=== PATIENT | female | born 1970 | race Caucasian/White ===

== ENCOUNTER 2021-12-17 20:40 | Emergency (ER) | payer OTHER, MEDICAID ==
[~2021-12-17] VITALS: Ht 160 cm; Wt 74.4 kg
[2021-12-17 20:40] VITALS: BP 131/92
[2021-12-17 22:22] LABS: Urine Bacteria FEW /hpf (None Seen); Urine Blood Negative /uL (Negative); Urine Hyaline Cast FEW /lpf (0 - 2); Urine Mucus FEW (None Seen); Urine WBC 3 /hpf (0 - 5)
[2021-12-17 22:35] LABS: Amphetamine Screen, Urine NEGATIVE (NEGATIVE); Barbiturate Scree,Urine NEGATIVE (NEGATIVE); Benzodiazephine Screen, Urine NEGATIVE (NEGATIVE); Cannabinoid Screen, Urine NEGATIVE (NEGATIVE); Cocaine Screen, Urine NEGATIVE (NEGATIVE); Opiate Scree,Urine NEGATIVE (NEGATIVE); Phencyclidine Screen, Urine NEGATIVE (NEGATIVE)
[2021-12-18] MEDS ORDERED: INSLANTI SC (19:51)
[2021-12-18] MEDS ORDERED: LISI2.5T47 PO (19:51)
== END 2021-12-17 22:02 | disposition left against medical advice (07) ==
LOC: ER 20:40
DX: R47.1 Dysarthria and anarthria (principal); M62.552 Muscle wasting and atrophy, not elsewhere classified, left thigh; E11.9 Type 2 diabetes mellitus without complications; E78.5 Hyperlipidemia, unspecified; R42 Dizziness and giddiness; Z53.29 Procedure and treatment not carried out because of patient's decision for other reasons
CPT/HCPCS: 80307; 81001

== ENCOUNTER 2021-12-18 04:36 | Inpatient (IN) | payer OTHER, MEDICAID ==
[~2021-12-18] VITALS: Ht 160 cm; Wt 73.7 kg
[2021-12-18 08:12] LABS: Basophils # (auto) 0.1 10 ^3/uL (0-0.2); Basophils % (auto) 0.6 % (0.0-2.0); Eosinophils # (auto) 0.2 10 ^3/uL (0-0.8); Eosinophils % (auto) 2.6 % (0.0-7.0); Hematocrit 42.9 % (36.0-46.0); Hemoglobin 14.6 g/dL (12.2-16.2); Lymphocytes # (auto) 2.9 10 ^3/uL (0.4-5.4); Lymphocytes % (auto) 31.1 % (10.0-50.0); Mean Corpuscular Hemoglobin 31.6 pg (28.0-32.0); Mean Corpuscular Volume 93.1 fL (80.0-100.0); Monocytes # (auto) 1.1 10 ^3/uL (0-1.3); Monocytes % (auto) 11.2 % (0.0-12.0); Neutrophils # (auto) 5.2 10 ^3/uL (1.6-8.6); Neutrophils % (auto) 54.5 % (37.0-80.0); White Blood Cell 9.5 10^3/uL (4.4-10.8)
[2021-12-18 08:28] LABS: Albumin 4.1 g/dL (3.4-5.0); BUN/Creatinine Ratio 23.2; Calcium 9.8 mg/dL (8.5-10.1); Potassium 3.6 mmol/L (3.5-5.1)
[2021-12-18 08:30] LABS: Bilirubin, Total 0.4 mg/dL (0.2-1.0); Total Protein 7.2 g/dL (6.4-8.2)
[2021-12-18] MEDS ORDERED: ASPirin-EC 81 mg tab PO ONE (12:15)
[2021-12-18] MEDS ORDERED: HYDROmorphone HCL 2 MG/ML VL/or syr IV PRN (12:15)
[2021-12-18] MEDS ORDERED: DEXTROSE (50%) 50ML SYRG IV PRN (12:15)
[2021-12-18] MEDS ORDERED: LABETALOL HCL 5 MG/ML 4ML SYRINGE IV PRN (12:15)
[2021-12-18] MEDS ORDERED: LORazepam 2MG/ML-1ML VIAL IV PRN (12:15)
[2021-12-18] MEDS ORDERED: DOCUSATE SOD 100 MG CAP PO PRN (12:15)
[2021-12-18] MEDS ORDERED: ACETAMINOPHEN 325 MG TAB PO PRN (12:15)
[2021-12-18 12:52] LABS: Cholesterol 177 mg/dL (< 200)
[2021-12-18 12:54] LABS: HDL Cholesterol 52 mg/dL (40-59); LDL Cholesterol 105 mg/dL (< 100); Triglycerides 274 mg/dL (< 150)
[2021-12-18] MEDS: SODIUM CHLOR 0.9% PF (SALINE LOCK) 10ML VIAL/SYR IV SCH ×2 (14:27→23:34)
[2021-12-18] MEDS: diazePAM 5 MG TAB PO PRN (14:27)
[2021-12-18 15:47] LABS: INR 0.99 (0.9-1.15)
[2021-12-18] MEDS: InsuLIN REG 1unit/0.01ml Soln (100units/ml) SC SCH ×2 (18:43→23:35)
[2021-12-18] MEDS: ACCU-CHEK COMFORT CURVE STRIP VI SCH ×2 (18:43→23:36)
[2021-12-18] MEDS ORDERED: IOHEXOL 350 MG/ML 100ML IJ ONE (19:02)
[2021-12-18] MEDS ORDERED: INSLANTI SC (19:51)
[2021-12-18] MEDS ORDERED: LISI2.5T47 PO (19:51)
[2021-12-18] MEDS: SODIUM CHLORIDE 0.9% 1,000 ML IV SCH ×2 (20:12→22:32)
[2021-12-18] MEDS: ATORVASTATIN 20 MG TAB PO SCH ×2 (22:00→23:34)
[2021-12-18 23:34] VITALS: BP 115/95
[2021-12-18 23:39] VITALS: BP 124/70
[2021-12-19 04:31] VITALS: BP 124/70
[2021-12-19 05:00] VITALS: BP 116/73
[2021-12-19] MEDS: SODIUM CHLOR 0.9% PF (SALINE LOCK) 10ML VIAL/SYR IV SCH ×3 (05:24→22:11)
[2021-12-19] MEDS: InsuLIN REG 1unit/0.01ml Soln (100units/ml) SC SCH ×4 (05:25→23:55)
[2021-12-19] MEDS: ACCU-CHEK COMFORT CURVE STRIP VI SCH ×4 (05:25→23:54)
[2021-12-19] MEDS: CLOPIDOGREL BISULFATE 75 MG TAB PO SCH (08:31)
[2021-12-19] MEDS: HYDROcodone-ACET 5/325MG TAB PO PRN ×2 (08:33→20:30)
[2021-12-19 09:40] VITALS: BP 114/75
[2021-12-19] MEDS: diazePAM 5 MG TAB PO PRN ×2 (11:44→22:10)
[2021-12-19 13:28] VITALS: BP 114/60
[2021-12-19 17:00] VITALS: BP 112/69
[2021-12-19] MEDS ORDERED: OMEP-260 PO (21:03)
[2021-12-19] MEDS ORDERED: NAP500T PO (21:03)
[2021-12-19] MEDS ORDERED: DIVA250T12 PO (21:03)
[2021-12-19] MEDS ORDERED: CLON0.5T10 PO (21:05)
[2021-12-19] MEDS ORDERED: DULA1INJ SC (21:07)
[2021-12-19 22:00] VITALS: BP 124/48
[2021-12-19] MEDS: ATORVASTATIN 20 MG TAB PO SCH (22:09)
[2021-12-20] MEDS ORDERED: ONDANSETRON HCL 4 MG/2 ML VIAL IV PRN (01:00)
[2021-12-20] MEDS ORDERED: EZET1TAB90 PO (03:29)
[2021-12-20] MEDS ORDERED: CLON0.5T3 PO (03:29)
[2021-12-20] MEDS ORDERED: ALBU108A5 IN (03:29)
[2021-12-20] MEDS ORDERED: CETITAB PO (03:29)
[2021-12-20] MEDS ORDERED: BECL80AE11 IN (03:29)
[2021-12-20 05:00] VITALS: BP 123/64
[2021-12-20 05:23] LABS: Urine Bacteria NONE SEEN /hpf (None Seen); Urine Blood 3+ /uL (Negative); Urine Mucus FEW (None Seen); Urine Specific Gravity 1.028 (1.001-1.035); Urine WBC 20 /hpf (0 - 5); Urine WBC Clumps PRESENT /hpf (None Seen)
[2021-12-20] MEDS: SODIUM CHLOR 0.9% PF (SALINE LOCK) 10ML VIAL/SYR IV SCH ×3 (05:36→22:08)
[2021-12-20] MEDS: ACCU-CHEK COMFORT CURVE STRIP VI SCH ×3 (05:36→18:00)
[2021-12-20] MEDS: InsuLIN REG 1unit/0.01ml Soln (100units/ml) SC SCH ×3 (05:37→18:45)
[2021-12-20 05:39] LABS: Alcohol, Urine < 3.0 mg/dL (0-10); Amphetamine Screen, Urine NEGATIVE (NEGATIVE); Barbiturate Scree,Urine NEGATIVE (NEGATIVE); Benzodiazephine Screen, Urine POSITIVE (NEGATIVE); Cannabinoid Screen, Urine NEGATIVE (NEGATIVE); Cocaine Screen, Urine NEGATIVE (NEGATIVE); Opiate Scree,Urine POSITIVE (NEGATIVE); Phencyclidine Screen, Urine NEGATIVE (NEGATIVE)
[2021-12-20] MEDS ORDERED: METOCLOPRAMIDE HCL 5MG/ml INJ 2ml VIAL IV ONE (06:00)
[2021-12-20 09:10] VITALS: BP 137/84
[2021-12-20] MEDS: CLOPIDOGREL BISULFATE 75 MG TAB PO SCH (10:12)
[2021-12-20] MEDS: diazePAM 5 MG TAB PO PRN (10:13)
[2021-12-20] MEDS: HYDROcodone-ACET 5/325MG TAB PO PRN ×2 (13:37→22:09)
[2021-12-20 13:50] VITALS: BP 118/67
[2021-12-20 17:10] VITALS: BP 112/71
[2021-12-20] MEDS: ATORVASTATIN 20 MG TAB PO SCH (22:08)
[2021-12-21] VITALS (7 sets, daily range): BP systolic 90–136; BP diastolic 35–78
[2021-12-21] MEDS: ACCU-CHEK COMFORT CURVE STRIP VI SCH ×4 (00:23→18:00)
[2021-12-21] MEDS: LORazepam 0.5 MG TAB PO PRN ×3 (00:23→22:37)
[2021-12-21] MEDS: InsuLIN REG 1unit/0.01ml Soln (100units/ml) SC SCH ×4 (00:32→18:37)
[2021-12-21 05:25] LABS: Basophils # (auto) 0.1 10 ^3/uL (0-0.2); Basophils % (auto) 0.7 % (0.0-2.0); Eosinophils # (auto) 0.2 10 ^3/uL (0-0.8); Eosinophils % (auto) 2.5 % (0.0-7.0); Hematocrit 38.2 % (36.0-46.0); Hemoglobin 13.1 g/dL (12.2-16.2); Lymphocytes % (auto) 32.4 % (10.0-50.0); Mean Corpuscular Hemoglobin 31.9 pg (28.0-32.0); Mean Corpuscular Hgb Conc. 34.4 g/dL (32.0-36.0); Mean Corpuscular Volume 92.5 fL (80.0-100.0); Monocytes # (auto) 1.1 10 ^3/uL (0-1.3); Monocytes % (auto) 11.6 % (0.0-12.0); Neutrophils # (auto) 4.8 10 ^3/uL (1.6-8.6); Neutrophils % (auto) 52.8 % (37.0-80.0); Red Blood Cells 4.13 10^6/uL (4.0-5.20); Red Cell Distribution Width 12.8 % (11.8-14.3); White Blood Cell 9.1 10^3/uL (4.4-10.8)
[2021-12-21 05:41] LABS: BUN/Creatinine Ratio 24.5; Calcium 8.5 mg/dL (8.5-10.1); Magnesium 1.8 mg/dL (1.6-2.6); Potassium 3.6 mmol/L (3.5-5.1)
[2021-12-21] MEDS: SODIUM CHLOR 0.9% PF (SALINE LOCK) 10ML VIAL/SYR IV SCH ×3 (05:47→22:32)
[2021-12-21] MEDS: HYDROcodone-ACET 5/325MG TAB PO PRN ×2 (10:42→22:37)
[2021-12-21] MEDS: CLOPIDOGREL BISULFATE 75 MG TAB PO SCH (10:43)
[2021-12-21] MEDS ORDERED: DULoxetine HCL 30 MG CAP PO ONE (18:00)
[2021-12-21] MEDS: INSULIN LANTUS (GLARGINE) 1 /0.01ml (100units/ml) SC SCH (22:36)
[2021-12-21] MEDS: ATORVASTATIN 20 MG TAB PO SCH (22:37)
[2021-12-22] MEDS: ACCU-CHEK COMFORT CURVE STRIP VI SCH ×4 (00:31→18:06)
[2021-12-22] MEDS: InsuLIN REG 1unit/0.01ml Soln (100units/ml) SC SCH ×4 (00:35→18:35)
[2021-12-22 05:00] VITALS: BP 131/67
[2021-12-22] MEDS: SODIUM CHLOR 0.9% PF (SALINE LOCK) 10ML VIAL/SYR IV SCH ×3 (05:52→22:31)
[2021-12-22] MEDS: LORazepam 0.5 MG TAB PO PRN ×2 (08:12→22:31)
[2021-12-22] MEDS: HYDROcodone-ACET 5/325MG TAB PO PRN ×3 (08:13→22:32)
[2021-12-22 09:11] VITALS: BP 123/59
[2021-12-22] MEDS: CLOPIDOGREL BISULFATE 75 MG TAB PO SCH (10:14)
[2021-12-22 11:00] VITALS: BP 123/59
[2021-12-22 12:00] VITALS: BP 126/80
[2021-12-22 16:30] VITALS: BP 126/70
[2021-12-22 22:00] VITALS: BP 131/67
[2021-12-22] MEDS: ATORVASTATIN 20 MG TAB PO SCH (22:31)
[2021-12-22] MEDS: INSULIN LANTUS (GLARGINE) 1 /0.01ml (100units/ml) SC SCH (22:34)
[2021-12-23] MEDS: ACCU-CHEK COMFORT CURVE STRIP VI SCH ×4 (00:12→18:41)
[2021-12-23] MEDS: InsuLIN REG 1unit/0.01ml Soln (100units/ml) SC SCH ×4 (00:17→18:42)
[2021-12-23 05:00] VITALS: BP 120/62
[2021-12-23] MEDS: SODIUM CHLOR 0.9% PF (SALINE LOCK) 10ML VIAL/SYR IV SCH ×2 (06:17→14:21)
[2021-12-23] MEDS: LORazepam 0.5 MG TAB PO PRN (08:42)
[2021-12-23] MEDS: HYDROcodone-ACET 5/325MG TAB PO PRN ×2 (08:42→09:40)
[2021-12-23] MEDS: CLOPIDOGREL BISULFATE 75 MG TAB PO SCH (08:42)
[2021-12-23 09:30] VITALS: BP 128/70
[2021-12-23 12:44] VITALS: BP 113/68
[2021-12-23] MEDS ORDERED: MORPHINE SULFATE INJ 2 MG/ml SYRG IV PRN (14:30)
[2021-12-23 17:18] VITALS: BP 116/65
== END 2021-12-23 19:00 | DRG 65 ==
LOC: EDBD 04:36 → ER 04:36 → TELE 12:07 → TELE-WESTW 23:00
PROVIDERS: ADMIT Internal Medicine; ATTEND Internal Medicine
DX: I63.29 Cerebral infarction due to unspecified occlusion or stenosis of other precerebral arteries (principal); G81.91 Hemiplegia, unspecified affecting right dominant side; R47.1 Dysarthria and anarthria; F41.9 Anxiety disorder, unspecified; E11.9 Type 2 diabetes mellitus without complications; E78.5 Hyperlipidemia, unspecified; F31.9 Bipolar disorder, unspecified; G47.10 Hypersomnia, unspecified; M54.50 Low back pain, unspecified; G89.4 Chronic pain syndrome; M79.7 Fibromyalgia; Z20.822 Contact with and (suspected) exposure to COVID-19; Z79.02 Long term (current) use of antithrombotics/antiplatelets; Z79.82 Long term (current) use of aspirin; Z79.899 Other long term (current) drug therapy; Z82.49 Family history of ischemic heart disease and other diseases of the circulatory system; Z86.73 Personal history of transient ischemic attack (TIA), and cerebral infarction without residual deficits; Z72.0 Tobacco use; Z79.4 Long term (current) use of insulin
CPT/HCPCS: 36415; 70450; 70545; 70547; 70551; 80048; 80053; 80061; 80307; 80320; 81001; 82962; 83036; 83735; 85025; 85610; 92507; 92523; 92610; 93005; 93306; 93886; 94660; 97110; 97116; 97530; G0378; J1815; J2405

== ENCOUNTER 2021-12-24 21:19 | Emergency (ER) | payer OTHER, MEDICAID ==
[~2021-12-24] VITALS: Ht 160 cm; Wt 77.0 kg
[~2021-12-24 21:19] MED LIST: ALBU108A5 IN; BECL80AE11 IN; CETITAB PO; CLON0.5T3 PO; DIVA250T12 PO; DULA1INJ SC; EZET1TAB90 PO; INSLANTI SC; NAP500T PO; OMEP-260 PO
[2021-12-24 22:17] VITALS: BP 120/72
[2021-12-24 23:18] LABS: Basophils # (auto) 0.1 10 ^3/uL (0-0.2); Basophils % (auto) 0.6 % (0.0-2.0); Eosinophils # (auto) 0.3 10 ^3/uL (0-0.8); Eosinophils % (auto) 3.7 % (0.0-7.0); Hematocrit 42.5 % (36.0-46.0); Hemoglobin 14.3 g/dL (12.2-16.2); Lymphocytes # (auto) 1.9 10 ^3/uL (0.4-5.4); Lymphocytes % (auto) 21.4 % (10.0-50.0); Mean Corpuscular Hemoglobin 31.3 pg (28.0-32.0); Mean Corpuscular Hgb Conc. 33.7 g/dL (32.0-36.0); Monocytes % (auto) 10.7 % (0.0-12.0); Neutrophils # (auto) 5.7 10 ^3/uL (1.6-8.6); Neutrophils % (auto) 63.6 % (37.0-80.0); Red Blood Cells 4.56 10^6/uL (4.0-5.20); Red Cell Distribution Width 12.6 % (11.8-14.3)
[2021-12-24 23:36] LABS: Albumin 3.1 g/dL (3.4-5.0); Calcium 9.7 mg/dL (8.5-10.1); Potassium 3.9 mmol/L (3.5-5.1)
[2021-12-24 23:39] LABS: BUN/Creatinine Ratio 20.8; Bilirubin, Total 0.4 mg/dL (0.2-1.0); Total Protein 7.1 g/dL (6.4-8.2)
[2021-12-25] MEDS ORDERED: ACETAMINOPHEN 325 MG TAB PO ONE (01:00)
== END 2021-12-25 10:54 | disposition home or self-care (01) ==
LOC: ER 21:19 → EDBD 21:19 → ER 12-25 10:54
DX: R33.9 Retention of urine, unspecified (principal); E11.9 Type 2 diabetes mellitus without complications; E78.5 Hyperlipidemia, unspecified; Z86.73 Personal history of transient ischemic attack (TIA), and cerebral infarction without residual deficits; Z79.4 Long term (current) use of insulin; Z79.899 Other long term (current) drug therapy
CPT/HCPCS: 36415; 74176; 80053; 83605; 83690; 84702; 85025

== ENCOUNTER 2021-12-29 16:01 | Emergency (ER) | payer OTHER, MEDICAID ==
[~2021-12-29] VITALS: Ht 160 cm; Wt 70.5 kg
[2021-12-29 16:41] LABS: Basophils # (auto) 0.1 10 ^3/uL (0-0.2); Basophils % (auto) 0.7 % (0.0-2.0); Eosinophils # (auto) 0.4 10 ^3/uL (0-0.8); Eosinophils % (auto) 3.6 % (0.0-7.0); Hematocrit 42.3 % (36.0-46.0); Hemoglobin 13.8 g/dL (12.2-16.2); Lymphocytes # (auto) 2.2 10 ^3/uL (0.4-5.4); Lymphocytes % (auto) 19.7 % (10.0-50.0); Mean Corpuscular Hemoglobin 30.3 pg (28.0-32.0); Mean Corpuscular Hgb Conc. 32.7 g/dL (32.0-36.0); Mean Corpuscular Volume 92.8 fL (80.0-100.0); Monocytes # (auto) 1.1 10 ^3/uL (0-1.3); Monocytes % (auto) 9.8 % (0.0-12.0); Neutrophils # (auto) 7.3 10 ^3/uL (1.6-8.6); Neutrophils % (auto) 66.2 % (37.0-80.0); Red Blood Cells 4.56 10^6/uL (4.0-5.20); Red Cell Distribution Width 12.3 % (11.8-14.3)
[2021-12-29 17:03] LABS: Calcium 9.1 mg/dL (8.5-10.1); Potassium 3.7 mmol/L (3.5-5.1)
[2021-12-29 17:05] LABS: BUN/Creatinine Ratio 25.5
[2021-12-29 17:08] LABS: Bilirubin, Total 0.2 mg/dL (0.2-1.0); Total Protein 6.8 g/dL (6.4-8.2)
[2021-12-29] MEDS ORDERED: HYDROcodone-ACET 5/325MG TAB PO ONE (20:45)
[2021-12-30] MEDS ORDERED: LORazepam 0.5 MG TAB PO ONE ×2 (00:45→23:30)
[2021-12-30] MEDS ORDERED: METOCLOPRAMIDE HCL 5MG/ml INJ 2ml VIAL IV ONE (08:00)
[2021-12-30] MEDS ORDERED: KETOROLAC TROMETH 30 MG/ML 1ML VIAL IV ONE (08:00)
[2021-12-30] MEDS ORDERED: KETOROLAC TROMETH 60MG/2ML VIAL IM ONE (09:15)
[2021-12-31] MEDS ORDERED: HYDROcodone-ACET 5/325MG TAB PO ONE (02:00)
[2021-12-31] MEDS ORDERED: clonazePAM 0.5 MG TAB PO ONE (23:00)
[2022-01-01] MEDS ORDERED: InsuLIN REG 1unit/0.01ml Soln (100units/ml) IV ONE (21:30)
[2022-01-01] MEDS ORDERED: LORazepam 0.5 MG TAB PO ONE (21:30)
[2022-01-01] MEDS ORDERED: DOCUSATE SOD 100 MG CAP PO PRN (21:45)
[2022-01-01] MEDS ORDERED: HYDROcodone-ACET 5/325MG TAB PO PRN (21:45)
[2022-01-01] MEDS ORDERED: ALBUTEROL SULF 2.5 MG/0.5ML(0.5%) NEB SOLN NEB PRN (21:45)
[2022-01-01] MEDS ORDERED: ONDANSETRON HCL 4 MG/2 ML VIAL IV PRN (21:45)
[2022-01-01] MEDS ORDERED: DEXTROSE (50%) 50ML SYRG IV PRN (21:45)
[2022-01-01] MEDS ORDERED: IPRATROPIUM BROM 0.5 MG/2.5ML INH SOL NEB PRN (21:45)
[2022-01-01] MEDS ORDERED: ACETAMINOPHEN 325 MG TAB PO PRN (21:45)
[2022-01-01] MEDS ORDERED: FAMOTIDINE (10MG/ML) 2ML VL IV SCH (22:00)
[2022-01-01] MEDS: SODIUM CHLOR 0.9% PF (SALINE LOCK) 10ML VIAL/SYR IV SCH (22:11)
[2022-01-01 23:18] LABS: Basophils # (auto) 0.1 10 ^3/uL (0-0.2); Basophils % (auto) 0.6 % (0.0-2.0); Eosinophils # (auto) 0.2 10 ^3/uL (0-0.8); Eosinophils % (auto) 1.9 % (0.0-7.0); Hematocrit 41.6 % (36.0-46.0); Hemoglobin 13.9 g/dL (12.2-16.2); Lymphocytes # (auto) 2.2 10 ^3/uL (0.4-5.4); Lymphocytes % (auto) 23.1 % (10.0-50.0); Mean Corpuscular Hgb Conc. 33.3 g/dL (32.0-36.0); Mean Corpuscular Volume 93.2 fL (80.0-100.0); Monocytes # (auto) 1.2 10 ^3/uL (0-1.3); Monocytes % (auto) 12.6 % (0.0-12.0); Neutrophils # (auto) 5.8 10 ^3/uL (1.6-8.6); Neutrophils % (auto) 61.8 % (37.0-80.0); Red Blood Cells 4.47 10^6/uL (4.0-5.20); Red Cell Distribution Width 12.3 % (11.8-14.3); White Blood Cell 9.4 10^3/uL (4.4-10.8)
[2022-01-01 23:49] LABS: Albumin 3.3 g/dL (3.4-5.0); BUN/Creatinine Ratio 28.2; Bilirubin, Total 0.3 mg/dL (0.2-1.0); Calcium 9.1 mg/dL (8.5-10.1); Total Protein 6.9 g/dL (6.4-8.2)
[2022-01-02] MEDS ORDERED: MORPHINE SULFATE INJ 2 MG/ml SYRG IV PRN
[2022-01-02] MEDS ORDERED: NITROGLYCERIN 0.4 MG SL TAB SL PRN
[2022-01-02] MEDS: ACCU-CHEK COMFORT CURVE STRIP VI SCH ×2 (00:12→05:44)
[2022-01-02] MEDS: InsuLIN REG 1unit/0.01ml Soln (100units/ml) SC SCH ×2 (00:15→05:47)
[2022-01-02 02:03] VITALS: BP 132/73
[2022-01-02] MEDS: SODIUM CHLOR 0.9% PF (SALINE LOCK) 10ML VIAL/SYR IV SCH (05:55)
[2022-01-02] MEDS ORDERED: ASPirin 81 mg TAB PO SCH (10:00)
== END 2022-01-02 01:59 | disposition admitted as inpatient to this hospital (09) ==
LOC: EDBD 16:01 → ER 16:01
DX: M79.10 Myalgia, unspecified site (principal); E11.9 Type 2 diabetes mellitus without complications; E78.5 Hyperlipidemia, unspecified; Z86.73 Personal history of transient ischemic attack (TIA), and cerebral infarction without residual deficits; Z79.4 Long term (current) use of insulin; Z79.899 Other long term (current) drug therapy; Z20.822 Contact with and (suspected) exposure to COVID-19
CPT/HCPCS: 36415; 71045; 80053; 82962; 83880; 84484; 85025; 85379; 96372; J1815; J1885; J3490

== ENCOUNTER 2022-01-02 07:24 | Inpatient (IN) | payer OTHER, MEDICAID ==
[~2022-01-02] VITALS: Ht 160 cm; Wt 72.1 kg
[2022-01-02] MEDS ORDERED: ONDANSETRON HCL 4 MG/2 ML VIAL IV PRN (08:00)
[2022-01-02] MEDS ORDERED: ACETAMINOPHEN 325 MG TAB PO PRN (08:00)
[2022-01-02] MEDS ORDERED: NITROGLYCERIN 0.4 MG SL TAB SL PRN (08:00)
[2022-01-02] MEDS ORDERED: DEXTROSE (50%) 50ML SYRG IV PRN ×2 (08:00)
[2022-01-02] MEDS ORDERED: ALUM & MAG HYDROX-SIMETH LIQ(MAALOX) 30 ML PO PRN (08:00)
[2022-01-02] MEDS ORDERED: INSULIN LANTUS (GLARGINE) 1 /0.01ml (100units/ml) SC ONE (08:00)
[2022-01-02] MEDS ORDERED: LORazepam 0.5 MG TAB PO PRN (08:00)
[2022-01-02] MEDS ORDERED: MORPHINE SULFATE INJ 2 MG/ml SYRG IV PRN ×2 (08:00)
[2022-01-02] MEDS ORDERED: DOCUSATE SOD 100 MG CAP PO PRN (08:00)
[2022-01-02 08:44] LABS: Basophils # (auto) 0.1 10 ^3/uL (0-0.2); Eosinophils # (auto) 0.3 10 ^3/uL (0-0.8); Eosinophils % (auto) 3.9 % (0.0-7.0); Hematocrit 42.4 % (36.0-46.0); Hemoglobin 14.2 g/dL (12.2-16.2); Lymphocytes # (auto) 2.2 10 ^3/uL (0.4-5.4); Lymphocytes % (auto) 25.7 % (10.0-50.0); Mean Corpuscular Hgb Conc. 33.6 g/dL (32.0-36.0); Mean Corpuscular Volume 92.2 fL (80.0-100.0); Monocytes # (auto) 1.1 10 ^3/uL (0-1.3); Monocytes % (auto) 12.8 % (0.0-12.0); Neutrophils # (auto) 4.8 10 ^3/uL (1.6-8.6); Neutrophils % (auto) 56.6 % (37.0-80.0); Red Cell Distribution Width 12.1 % (11.8-14.3); White Blood Cell 8.5 10^3/uL (4.4-10.8)
[2022-01-02 09:00] VITALS: BP 145/74
[2022-01-02 09:03] LABS: Albumin 3.1 g/dL (3.4-5.0); Calcium 9.2 mg/dL (8.5-10.1); Potassium 3.7 mmol/L (3.5-5.1)
[2022-01-02 09:06] LABS: BUN/Creatinine Ratio 37.9; Bilirubin, Total 0.3 mg/dL (0.2-1.0)
[2022-01-02] MEDS ORDERED: ACCU-CHEK COMFORT CURVE STRIP VI SCH (12:00)
[2022-01-02] MEDS ORDERED: InsuLIN REG 1unit/0.01ml Soln (100units/ml) SC SCH (12:00)
[2022-01-02 13:00] VITALS: BP 130/81
[2022-01-02] MEDS ORDERED: SODIUM CHLOR 0.9% PF (SALINE LOCK) 10ML VIAL/SYR IV SCH (14:00)
[2022-01-02] MEDS: ASPirin 81 mg TAB PO SCH (14:16)
[2022-01-02] MEDS: FAMOTIDINE (10MG/ML) 2ML VL IV SCH ×2 (14:16→22:07)
[2022-01-02] MEDS: HYDROcodone-ACET 5/325MG TAB PO PRN ×2 (14:21→22:23)
[2022-01-02] MEDS: InsuLIN REG 1unit/0.01ml Soln (100units/ml) SC SCH ×3 (14:22→22:22)
[2022-01-02] MEDS: ACCU-CHEK COMFORT CURVE STRIP VI SCH ×3 (14:22→22:08)
[2022-01-02] MEDS: SODIUM CHLOR 0.9% PF (SALINE LOCK) 10ML VIAL/SYR IV SCH ×2 (14:23→22:07)
[2022-01-02] MEDS: CLOPIDOGREL BISULFATE 75 MG TAB PO SCH (16:29)
[2022-01-02 17:00] VITALS: BP 107/67
[2022-01-02] MEDS: ATORVASTATIN 20 MG TAB PO SCH (22:08)
[2022-01-02] MEDS: clonazePAM 0.5 MG TAB PO SCH (22:08)
[2022-01-02] MEDS: INSULIN LANTUS (GLARGINE) 1 /0.01ml (100units/ml) SC SCH (22:22)
[2022-01-03 03:11] VITALS: BP 141/81
[2022-01-03 05:59] VITALS: BP 106/80
[2022-01-03 06:10] LABS: Basophils # (auto) 0.1 10 ^3/uL (0-0.2); Basophils % (auto) 0.9 % (0.0-2.0); Eosinophils # (auto) 0.5 10 ^3/uL (0-0.8); Hematocrit 41.5 % (36.0-46.0); Hemoglobin 13.7 g/dL (12.2-16.2); Lymphocytes % (auto) 26.3 % (10.0-50.0); Mean Corpuscular Hemoglobin 30.7 pg (28.0-32.0); Mean Corpuscular Volume 93.2 fL (80.0-100.0); Monocytes # (auto) 0.9 10 ^3/uL (0-1.3); Monocytes % (auto) 12.3 % (0.0-12.0); Neutrophils % (auto) 53.5 % (37.0-80.0); Red Blood Cells 4.46 10^6/uL (4.0-5.20); Red Cell Distribution Width 12.3 % (11.8-14.3); White Blood Cell 7.4 10^3/uL (4.4-10.8)
[2022-01-03] MEDS: ACCU-CHEK COMFORT CURVE STRIP VI SCH ×4 (06:21→22:10)
[2022-01-03] MEDS: INSULIN LANTUS (GLARGINE) 1 /0.01ml (100units/ml) SC SCH ×2 (06:22→22:11)
[2022-01-03] MEDS: SODIUM CHLOR 0.9% PF (SALINE LOCK) 10ML VIAL/SYR IV SCH ×3 (06:23→22:09)
[2022-01-03] MEDS: InsuLIN REG 1unit/0.01ml Soln (100units/ml) SC SCH ×4 (06:23→22:11)
[2022-01-03] MEDS: clonazePAM 0.5 MG TAB PO SCH ×3 (06:23→22:09)
[2022-01-03 06:29] LABS: Albumin 2.9 g/dL (3.4-5.0); Potassium 3.6 mmol/L (3.5-5.1)
[2022-01-03 06:35] LABS: BUN/Creatinine Ratio 30.9; Bilirubin, Total 0.3 mg/dL (0.2-1.0); Total Protein 6.3 g/dL (6.4-8.2)
[2022-01-03 09:00] VITALS: BP 107/69
[2022-01-03] MEDS: FAMOTIDINE (10MG/ML) 2ML VL IV SCH ×2 (10:53→22:09)
[2022-01-03] MEDS: ASPirin 81 mg TAB PO SCH (10:53)
[2022-01-03] MEDS: CLOPIDOGREL BISULFATE 75 MG TAB PO SCH (10:54)
[2022-01-03 17:00] VITALS: BP 118/74
[2022-01-03] MEDS: HYDROcodone-ACET 5/325MG TAB PO PRN ×2 (17:47→22:26)
[2022-01-03 22:00] VITALS: BP 111/62
[2022-01-03] MEDS: ATORVASTATIN 20 MG TAB PO SCH (22:10)
[2022-01-04 05:00] VITALS: BP 98/61
[2022-01-04] MEDS: SODIUM CHLOR 0.9% PF (SALINE LOCK) 10ML VIAL/SYR IV SCH ×3 (06:36→22:20)
[2022-01-04] MEDS: clonazePAM 0.5 MG TAB PO SCH ×3 (06:36→22:21)
[2022-01-04] MEDS: ACCU-CHEK COMFORT CURVE STRIP VI SCH ×4 (06:37→22:21)
[2022-01-04] MEDS: INSULIN LANTUS (GLARGINE) 1 /0.01ml (100units/ml) SC SCH ×2 (06:39→22:22)
[2022-01-04] MEDS: InsuLIN REG 1unit/0.01ml Soln (100units/ml) SC SCH ×4 (06:39→22:26)
[2022-01-04 09:00] VITALS: BP 83/57
[2022-01-04] MEDS: FAMOTIDINE (10MG/ML) 2ML VL IV SCH ×2 (10:00→22:20)
[2022-01-04] MEDS: ASPirin 81 mg TAB PO SCH (11:18)
[2022-01-04] MEDS: CLOPIDOGREL BISULFATE 75 MG TAB PO SCH (11:18)
[2022-01-04] MEDS: HYDROcodone-ACET 5/325MG TAB PO PRN ×2 (11:19→19:04)
[2022-01-04 13:00] VITALS: BP 104/58
[2022-01-04 17:00] VITALS: BP 100/89
[2022-01-04 22:00] VITALS: BP 118/63
[2022-01-04] MEDS: ATORVASTATIN 20 MG TAB PO SCH (22:21)
[2022-01-05 05:00] VITALS: BP 116/60
[2022-01-05] MEDS: SODIUM CHLOR 0.9% PF (SALINE LOCK) 10ML VIAL/SYR IV SCH (05:40)
[2022-01-05] MEDS: clonazePAM 0.5 MG TAB PO SCH (05:40)
[2022-01-05] MEDS: ACCU-CHEK COMFORT CURVE STRIP VI SCH ×2 (06:30→11:30)
[2022-01-05] MEDS: INSULIN LANTUS (GLARGINE) 1 /0.01ml (100units/ml) SC SCH (06:31)
[2022-01-05] MEDS: InsuLIN REG 1unit/0.01ml Soln (100units/ml) SC SCH ×2 (06:33→11:30)
[2022-01-05 08:25] VITALS: BP 104/55
[2022-01-05] MEDS: FAMOTIDINE (10MG/ML) 2ML VL IV SCH (10:00)
[2022-01-05] MEDS: ASPirin 81 mg TAB PO SCH (10:31)
[2022-01-05] MEDS: CLOPIDOGREL BISULFATE 75 MG TAB PO SCH (10:32)
== END 2022-01-05 11:45 | DRG 66 ==
LOC: ER 07:24 → EAST 08:00
PROVIDERS: ADMIT Internal Medicine; ATTEND Internal Medicine
DX: I63.9 Cerebral infarction, unspecified (principal); E11.9 Type 2 diabetes mellitus without complications; F31.9 Bipolar disorder, unspecified; I10 Essential (primary) hypertension; Z20.822 Contact with and (suspected) exposure to COVID-19; M79.7 Fibromyalgia; Z79.4 Long term (current) use of insulin; Z79.82 Long term (current) use of aspirin; Z86.73 Personal history of transient ischemic attack (TIA), and cerebral infarction without residual deficits; R47.1 Dysarthria and anarthria; Z91.041 Radiographic dye allergy status
CPT/HCPCS: 36415; 73560; 80053; 82962; 84443; 85025; 87081; 92523; 97110; 97116; 97530; G0378; J1815; J3490